=== PATIENT | male | born 1950 | race Caucasian/White ===

== ENCOUNTER 2024-08-25 16:34 | Emergency (ER) | payer OTHER, MEDICAID ==
[~2024-08-25] VITALS: Ht 180.3 cm; Wt 85.3 kg
[2024-08-25] MEDS ORDERED: HYDROCODONE/APAP 5/325MG TABLET ONE (17:28)
[2024-08-25] MEDS: HYDROCODONE/APAP 5/325MG TABLET PO ONE (17:30)
[2024-08-25 19:58] VITALS: BP 141/79; TEMP 98.4; O2SAT 96
== END 2024-08-25 19:59 ==
LOC: ER 16:39
DX: T81.30XA Disruption of wound, unspecified, initial encounter (principal); E78.5 Hyperlipidemia, unspecified; M79.632 Pain in left forearm; F32.9 Major depressive disorder, single episode, unspecified; Y84.8 Other medical procedures as the cause of abnormal reaction of the patient, or of later complication, without mention of misadventure at the time of the procedure; Y92.89 Other specified places as the place of occurrence of the external cause
CPT/HCPCS: 99283; A6253